=== PATIENT | male | born 1960 | race Caucasian/White ===

== ENCOUNTER 2018-02-24 03:32 | Emergency (ER) | payer OTHER, SELFPAY ==
[2018-02-24 03:33] VITALS: BP 195/111; PULSE 73; RESP 23; TEMP 36.7; O2SAT 91; BMI 25.5
--- NOTE | 2018-02-24 03:38 | EKG12_ITS ---
Test Reason : SOB Blood Pressure : / mmHG Vent. Rate : 070 BPM Atrial Rate : 070 BPM P-R Int : 142 ms QRS Dur : 084 ms QT Int : 382 ms P-R-T Axes : 044 019 031 degrees QTc Int : 412 ms Normal sinus rhythm Normal ECG Confirmed by ALYCE MCLEAN MD ([id number]), visual effects editor MARLON STEEL ([id number]) on 02/26/2018 3:10:37 PM Referred By: STEVE Confirmed By:ALYCE MCLEAN MD
--- NOTE | 2018-02-24 03:55 | RAD_ITS ---
STUDY: X-RAY CHEST REASON FOR EXAM: Male, 58 years old. SOB TECHNIQUE: Single frontal view of the chest. COMPARISON: None. FINDINGS: Cervical spine fusion. The lungs are clear and expanded. There is no demonstrated pleural abnormality. Normal size heart. Normal mediastinum and royal. Normal visualized pulmonary arteries. Normal visualized aortic arch and descending thoracic aorta. Normal visualized thoracic spine. Normal visualized ribs, clavicles, and shoulders. There is no demonstrated abnormality of the visualized soft tissue structures of the upper abdomen. RAD/Chest 1 View (Portable) IMPRESSION: No acute pulmonary findings. Electronically Signed: Garfield Norwood MD at 5:06 EDT Tel , Service support ,
[2018-02-24 04:16] LABS: Absolute Lymphocyte Count 2.33 X10^3/ul (0.83-4.51); Absolute Neutrophil Count 3.9 X10^3/uL (2.0-7.7); Basophil# 0.04 X10^3/uL; Basophil% 0.6 % (0-1); Eosinophil# 0.15 X10^3/uL; Eosinophils% 2.2 % (0-5); Hematocrit 41.4 % (40-54); Hemoglobin 14.3 g/dl (13.0-16.5); Lymphocyte # 2.33 X10^3/ul (4.0); Lymphocyte % 33.8 % (19-41); Mean Corp Hgb Conc 34.5 g/gl (32-36); Mean Corpuscular Volume 89.8 fL (80-94); Mean Platelet Vol. 10.8 fl (6.2-12.0); Monocyte% 7.2 % (0-10); Neutrophil # 3.87 X10^3/uL (2.7-7.7); Neutrophil % 56.1 % (47-70); Platelet Count 249 K/mm3 (150-450); RBC Distribution Width CV 12.5 % (11.6-14.6); RBC Distribution Width SD 40.8 fl (35.1-43.9); Red Blood Count 4.61 M/mm3 (4.6-6.2); White Blood Count 6.9 K/mm3 (4.4-11.0)
[2018-02-24 04:19] LABS: POSITIVE COUNT NO; POSITIVE DIFFERENTIAL NO; POSITIVE MORPHOLOGY NO
[2018-02-24] MEDS: Ipratropium/Albuterol Sulfate 3 ML AMPUL.NEB INHALATION (04:25)
[2018-02-24] MEDS: Albuterol 2.5 MG/3 ML VIAL.NEB. INHALATION (04:25)
[2018-02-24 04:27] VITALS: PULSE 66; RESP 12
[2018-02-24 04:36] LABS: Anion Gap 12 (5-15); BUN 17 mg/dL (7-18); BUN/Creat Ratio 15.9 RATIO (10-20); Calcium,Total 8.8 mg/dL (8.5-10.1); Chloride 106 mmol/L (98-107); Creatinine, Serum 1.07 mg/dL (0.70-1.30); EST Glomerular Filtration Rate 75 mL/min (>60); Est Glom Filt Rate - Afr Amer 91 mL/min (>60); Estimated Creatinine Clearance 87.49 ml/min; Glucose 208 mg/dL (74-106); Potassium 3.9 mmol/L (3.5-5.1); Sodium Level 141 mmol/L (136-145)
--- NOTE | 2018-02-24 05:34 | ED.DCSUM_ITS ---
- ER Visit Summary Date of Service: 02/24/18 Chief Complaint: Shortness of breath and wheezing History of Present Illness: The patient is a 58 M past medical history of insulin-dependent diabetes, hypertension and high cholesterol. No prior history of cardiac disease, COPD, asthma nor any history of DVT or PE. No chest pain. No pleuritic chest pain. No recent travel, surgery, mobilization. No leg pain or swelling. Patient was in his normal state of health today. They were burning debris in the yard. He and his had intercourse this evening and during and after he became short of breath. He had a cough of frothy blood-tinged sputum. He does state that currently he has dental infection but is not on any antibiotics. He denies any leg pain or swelling. No calf pain. Physical Examination: Well-appearing middle-age male. Vital signs are stable initial blood pressure is elevated 195/111. His pulse ox is only 91% on room air borderline for hypoxia. H EENT exam unremarkable. Neck nontender no lymphadenopathy. No JVD. Lungs he has prolonged expiratory phase bilaterally. Expiratory wheezes. No rales. No rhonchi. Heart regular rhythm rate about 70 no murmur. Chest wall nontender. No crepitance or subcu air. Abdomen soft and nontender. He is moving all 4 extremities. Calves are nontender without edema or cords. Back exam nontender. Neurologically is awake and alert with no focal motor deficits. Test Results: Chest x-ray was obtained read both by myself and the radiologist. Showed chronic changes no acute process. Normal cardiac silhouette. No infiltrate. EKG sinus rhythm rate is 70 unchanged from 1 from December of last year. No signs of ischemia. White count was 6. H&H of 14 and 41. Chemistries were unremarkable gap was 12. Troponin was normal. Emergency Department Course and Treatment: Patient treated with DuoNeb and one albuterol aerosol. Also p.o. prednisone. After the aerosol treatments his breathing improved. His sat was in the mid to high 90s. His wheezing had nearly completely resolved. And he felt improved. Treatment Plan: Patient will be given albuterol liquid prescription for a nebulizer that they have access to use at home. Also prednisone daily 40 mg for 1 week. They know to return if he is feeling worse. He has no DVT or PE history. I do not feel he needs a CAT scan. He has no DVT or PE risk factors. 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 Disposition: Discharge Impression: Acute dyspnea with wheezing secondary to bronchospasm This note was generated with [employer] dictation software. It may contain incorrect words, spelling, and punctuation that were not noted in review of the chart prior to signing ED Disposition - Plan for ED Patient: Chief Complaint: Shortness of Breath Referrals: Ivet Carrasco MD [Primary Care Provider] -
--- NOTE | 2018-02-24 05:34 | ED.DEP ---
ED Disposition - Plan for ED Patient: Disposition: Home or Assisted Living Chief Complaint: Shortness of Breath Instructions: ED Bronchitis Asthmatic Prescriptions: Albuterol Aerosols [Ventolin Aerosols] 2.5 mg INHALATION Q4H PRN #25 vial Prednisone [Deltasone] 40 mg PO DAILY 7 Days tab Clindamycin [Cleocin] 150 mg PO 4X/DAY #40 cap Referrals: Ivet Carrasco MD [Primary Care Provider] - 3-5 Days if not improving Additional Instructions: Use the albuterol aerosols every 2-4 hours as needed. Prednisone 40 mg a day for the next week. Start on Sunday because she will be given your first dose here in the ER. Return to ER if you are feeling worse, develop chest pain or have continued or worsening bloody sputum. Or follow-up your primary care physician if not improving.
[2018-02-24] MEDS: predniSONE 20 MG Tablet 60 MG PO (05:45)
[2018-02-24 05:51] VITALS: BP 155/82; PULSE 73; RESP 16; O2SAT 93
== END 2018-02-24 05:51 | disposition home or self-care (01) ==
PROVIDERS: Emergency Provider Emergency Medicine; Family Provider Internal Medicine; PCP Internal Medicine
DX: J98.01 Acute bronchospasm (principal); R06.2 Wheezing; R06.00 Dyspnea, unspecified; E11.9 Type 2 diabetes mellitus without complications; I10 Essential (primary) hypertension; E78.00 Pure hypercholesterolemia, unspecified; Z79.4 Long term (current) use of insulin; Z79.82 Long term (current) use of aspirin; Z79.899 Other long term (current) drug therapy
CPT/HCPCS: 71045; 80048; 84484; 85025; 93005; 94640; 99285; A4216

== ENCOUNTER 2019-08-29 12:38 | Day surgery (SDC) | payer OTHER, SELFPAY ==
--- NOTE | 2019-08-29 12:52 | EKG12_ITS ---
Test Reason : PRE OP Blood Pressure : / mmHG Vent. Rate : 051 BPM Atrial Rate : 051 BPM P-R Int : 138 ms QRS Dur : 090 ms QT Int : 434 ms P-R-T Axes : 031 018 025 degrees QTc Int : 400 ms Sinus bradycardia Otherwise normal ECG When compared with ECG of 24-FEB-2018 03:42, No significant change was found Confirmed by CARIDAD BLACWKELL, ALYCE ([id number]), dictionary editor DUKE GRANT ([id number]) on 09/02/2019 8:57:07 AM Referred By: Sai Hutchinson Confirmed By:ALYCE MCLEAN MD
[2019-08-29 13:15] LABS: Hematocrit 41.9 % (40-54); Hemoglobin 14.3 g/dL (13.0-16.5); Mean Corp Hgb Conc 34.1 g/dL (32-36); Mean Corpuscular Hgb 30.4 pg (27.0-32.0); Mean Corpuscular Volume 89.1 fL (80-94); Mean Platelet Vol. 10.2 fl (6.2-12.0); Platelet Count 278 K/mm3 (150-450); RBC Distribution Width SD 38.6 fl (35.1-43.9); White Blood Count 6.7 K/mm3 (4.4-11.0)
[2019-08-29 13:30] VITALS: BP 174/86; PULSE 53; RESP 16; TEMP 37.1; O2SAT 98; BMI 26.8
[2019-08-29] MEDS: Lactated Ringers 1,000 ML 100 ML IV ×2 (13:30→15:12)
[2019-08-29 13:51] LABS: Bedside Glucose 194 mg/dL (70-110)
[2019-08-29 14:07] LABS: Anion Gap 5 (5-15); BUN 22 mg/dL (7-18); Calcium,Total 9.1 mg/dL (8.5-10.1); Chloride 107 mmol/L (98-107); EST Glomerular Filtration Rate 81 mL/min (>60); Est Glom Filt Rate - Afr Amer 98 mL/min (>60); Glucose 200 mg/dL (74-106); Potassium 4.3 mmol/L (3.5-5.1); Sodium Level 138 mmol/L (136-145)
--- NOTE | 2019-08-29 14:10 | ETH_PTH ---
PATIENT: CODY LANIER LOC: [facility] [place][id number] AGE/SX: 59/M ROOM: RE08/29/[address]: Dr. Sai Hutchinson MD : 1960 BED: DIS: 08/29/2019 SPEC #: [id number] RECD: 08/29/19 15:27 STATUS: TOLU REAyse #: [id number] OMAIRA: 08/29/19 14:[address]: Sai Hutchinson DEPT: SURGICAL PATHOLOGY RECD BY: Uday Mcleod ENTERED: 09/01/19 11:02 SP TYPE: ETH TISS OTHR DR: Dr. Ivet Carrasco MD Tissues: Ethmoid sinus, NOS Procedures: Surgery Specimen Level IV HEADER OPERATION: Endoscopic nasal sinus partial ethmoidectomy PRE-OP DIAGNOSIS: Chronic right maxillary sinusitis; chronic ethmoid sinusitis TISSUE SUBMITTED: Sinus contents right side MICROSCOPIC DIAGNOSIS Sinus contents right side: Fragments of respiratory mucosa with chronic inflammation. BROOKE:daphnie 09/02/19 MICROSCOPIC DESCRIPTION Slides are reviewed. GROSS DESCRIPTION Received in fixative is one container labeled with the patient's name and designated right sinus contents. The specimen consists of multiple foamy fragments of lebron tissue that in aggregate measure 5 x 3 x 2 cm. Property Insurance Claims Examiner portions are submitted in two cassettes. / AM:daphnie 09/01/19 TC:3 CPT: 73794
[2019-08-29] MEDS: Oxymetazoline 0.05% 1 SPRAY SPRAY.BTL 15 SPRAY (14:30)
[2019-08-29] MEDS: Lidocaine 4% 50 ML Bottle TOPICAL (14:30)
--- NOTE | 2019-08-29 14:53 | OP.PCM_ITS ---
Problem List (1) Chronic maxillary sinusitis Status: Chronic (2) Chronic ethmoidal sinusitis Status: Chronic (3) Type 2 diabetes mellitus Status: Chronic Report of Operation Date of Procedure: 08/29/19 Pre-Operative Diagnosis: Chronic right maxillary and ethmoid sinusitis Post-Operative Diagnosis: Same Surgery/Procedure Performed:: Right endoscopic maxillary antrostomy with tissue removal, anterior ethmoidectomy with navigation Description of Surgical Findings:: Fan is a 59-year-old male with chronic right-sided facial pain and CT scan confirming complete opacification of the right maxillary and anterior ethmoid air cells extending into the frontal sinus. 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 The above procedures offered hopes of alleviation of this chronic complaint and he is eager to proceed. The risks, alternatives, potential complications, and benefits were discussed at length and any questions answered to the patient and/or caregiver's satisfaction. Witnessed informed consent was obtained in the office, and the patient and/or caregiver was agreeable to proceed. Procedure went as follows: The patient was identified in the preoperative holding and brought to the operating room, was placed under general anesthesia and intubated. When appropriate anesthesia was obtained, the navigational head gear was placed and confirmed to be operational in accordance with the fitness and wellness director's directions. Pledgets soaked in a 50-50 mixture of oxymetazoline and 4% topical lidocaine were placed to decongest the nasal mucosa. These were then removed and beginning on the right side using a 0? endoscope the nasal cavity examined. The insertion of the middle turbinate and uncinate process was then injected with 1% lidocaine with 100,000 epinephrine for a total of 2 mL. On the right, the middle turbinate was medialized with a Bond elevator. This allowed examination of the maxillary sinus ostia which was then probed with a double ball seeker. This was occluded with dense but friable granulation tissue and on probing abundant purulent material was noted to exude from the maxillary sinus. This was suctioned clear. The uncinate process was then outfractured with a J curette and transected with a backbiting forceps. This was then removed with the microdebrider creating a wide maxillary antrostomy. The occluding granulation tissue and polypoid mucosa was then removed. The purulent material was aspirated with the use of a Luken's trap and a culture sent. This was then irrigated with saline solution until clear. The ethmoid bulla was then entered and an anterior ethmoidectomy was then carried out working posteriorly to anterior. Any polyps, scar, and mucous secretions were removed. Pledgets soaked in oxymetazoline were then placed for hemostasis. Floseal hemostatic agent was then applied. An NG tube was then placed to decompress the stomach and the patient returned to anesthesia, revived and extubated having tolerated the procedure well. Type of Anesthesia:: General Anesthesiologist: Prosper Lopes Special Medications: none Specimen's removed: right maxillary sinus contents Drains: none Estimated Blood Loss (mL): 50 mL Fluids Replaced: 1000 mL Grafts/Implants Used: none - Complications none - Admit VTE Documentation VTE Present on Admission: No VTE Mechan Device Prophylaxis: SCD's VTE Pharm Prophylaxis ordered?: No
--- NOTE | 2019-08-29 14:59 | DCINST_ITS ---
- Discharge Diagnoses Current Active Problems: Current Active and Chronic Problems Chronic maxillary sinusitis (Chronic) Chronic ethmoidal sinusitis (Chronic) You will use the following diet at home:: Calorie/Carbohydrate Controlled (specify 1200, 1400, etc) - 2000 Kcal Discharge Activity: Return to Normal Activity Call your doctor if your incision/area has: Sudden Increased Bleeding, Foul Smelling Discharge Call your doctor if you observe: Fever of 101 or Higher, Uncontrolled pain Allergies/Adverse Reactions: Allergies bee venom protein (honey bee) Allergy (Verified 08/29/19 13:27) Anaphylaxis Penicillins Allergy (Verified 08/29/19 13:27) Anaphylaxis morphine Adverse Reaction (Verified 08/29/19 13:27) Vomiting Medications to take at Discharge Clonidine HCl 0.1 mg PO BID PRN 01/16/17 Insulin Glargine,Hum.rec.anlog [Lantus] 14 unit SQ BID 01/16/17 Insulin Lispro [Humalog] 0 unit SQ TIDCM 01/16/17 Metoprolol Tartrate [Lopressor] 100 mg PO BID 01/16/17 Pravastatin [Pravachol] 40 mg PO QHS 01/16/17 Aspirin [Aspir 81] 81 mg PO DAILY 08/27/19 Cyclobenzaprine HCl 10 mg PO PRN PRN 08/27/19 Ibuprofen [Ibu] 800 mg PO BID PRN PRN 08/27/19 Losartan Potassium [Cozaar] 100 mg PO DAILY 08/27/19 Tamsulosin HCl [Flomax] 0.4 mg PO QHS 08/27/19 Primary Care Physician: Ivet Carrasco MD [Primary Care Provider] - Test Results: Test results from this visit will be discussed in further detail at your follow- up appointment, if applicable. Please Follow Up With: Sai Hutchinson MD When: 2 weeks
[2019-08-29 15:06] VITALS: BP 174/86; BP 178/102; PULSE 67; RESP 16; TEMP 36.2; O2SAT 99
[2019-08-29 15:15] VITALS: BP 170/84; BP 174/86; PULSE 65; RESP 16; O2SAT 97
[2019-08-29 15:26] LABS: Bedside Glucose 199 mg/dL (70-110)
[2019-08-29 15:27] VITALS: BP 164/99; BP 174/86; PULSE 57; RESP 16; O2SAT 95
[2019-08-29 15:33] VITALS: BP 173/87; BP 174/86; PULSE 57; RESP 16; TEMP 36.3; O2SAT 97
[2019-08-29 16:29] VITALS: BP 174/86
== END 2019-08-29 16:31 | disposition home or self-care (01) ==
LOC: SDC 12:40 → AC 12:42
PROVIDERS: Anesthesiology; PCP Internal Medicine; Referring Provider Otolaryngology; Visit Provider Otolaryngology
PROC: (CPT 31254; principal; 2019-08-29 13:40)
DX: J32.0 Chronic maxillary sinusitis (principal); J32.2 Chronic ethmoidal sinusitis; E11.9 Type 2 diabetes mellitus without complications; E78.00 Pure hypercholesterolemia, unspecified; M19.90 Unspecified osteoarthritis, unspecified site; I10 Essential (primary) hypertension; Z79.4 Long term (current) use of insulin; Z79.82 Long term (current) use of aspirin; Z79.899 Other long term (current) drug therapy
CPT/HCPCS: 31254; 31267; 36415; 80048; 82962; 85027; 87070; 87075; 87077; 87102; 87186; 87205; 87206; 88305; 93005; J7120; J2405